=== PATIENT | female | born 1955 ===

== ENCOUNTER → 2020-12-18 18:52 | Outpatient (ROUT) | payer MEDICARE, MEDICAID, SELFPAY ==
[2020-12-18 19:38] LABS: BUN Creatinine Ratio 24.4 (6-22); Blood Urea Nitrogen 19 mg/dL (7-17); Calcium 8.9 mg/dL (8.4-10.2); Carbon Dioxide 33 mmol/L (22-32); Chloride 101 mmol/L (98-107); Estimated Glomerular Filt Rate > 60.0 mL/min (>60); Glucose 217 mg/dL (80-110); HEMOLYSIS < 15 (0-50); Potassium 3.8 mmol/L (3.4-5.1); Sodium 139 mmol/L (137-145)
[2020-12-18 19:56] LABS: Free T3, Triiodothyronine Free 3.55 pg/mL (2.77-5.27); Free T4, Direct Thyroxine 0.85 ng/dL (0.78-2.19); T4 Total Thyroxine 5.97 ug/dL (5.5-11.0); T7 (Free Thyroxine Index) 1.98 (1.65-3.89); Triiodothryronine T3 Uptake 33.1 % (23.5-40.5)
[2020-12-18 20:09] LABS: Thyroid Stimulating Hormone 2.04 uIU/mL (0.47-4.68)
[2020-12-20 07:02] LABS: Thyroid Peroxidase Antibodies <9 IU/mL (0-34)
== END ==
PROVIDERS: PCP Internal Medicine; Visit Provider Internal Medicine
DX: I10 Essential (primary) hypertension (principal); E03.9 Hypothyroidism, unspecified
CPT/HCPCS: 80048; 84436; 84439; 84443; 84479; 84481; 86376

== ENCOUNTER → 2022-05-05 10:21 | Outpatient (CLI) | payer MEDICARE, MEDICAID, SELFPAY ==
--- NOTE | 2022-05-05 10:23 | DI.RAD.S_ITS ---
PROCEDURE: XR KNEE LT 4V INDICATIONS: left knee pain, trauma TECHNIQUE: 4 views of the knee were acquired. COMPARISON: None. FINDINGS: Bones: No fractures or dislocations. No suspicious bony lesions. Moderate medial compartment narrowing and probable mild patellofemoral compartment narrowing. Tricompartmental spurring present. Soft tissues: No joint effusion. Vascular calcifications are present. IMPRESSION: 1. No acute osseous abnormality. 2. Moderate degenerative changes of the knee. 3. If symptoms persist, follow-up radiographs and/or CT may be helpful for further evaluation. Dictated by: Maximiliano Bergman M.D. on 05/05/2022 at 15:45 Approved by: Maximiliano Bergman M.D. on 05/05/2022 at 15:49
== END ==
PROVIDERS: PCP Internal Medicine; Referring Provider Internal Medicine; Visit Provider Internal Medicine
DX: S80.02XA Contusion of left knee, initial encounter (principal)
CPT/HCPCS: 73564

== ENCOUNTER → 2022-05-21 10:59 | Outpatient (CLI) | payer MEDICARE, MEDICAID, SELFPAY ==
[2022-05-21 12:19] LABS: Hematocrit 42.7 % (36-46); Hemoglobin 13.6 g/dL (12.0-16.0); Mean Corpuscular HGB Conc 31.9 % (30-36); Mean Corpuscular Volume 87.8 fL (80-100); Platelet Count 172 X10^3/uL (150-400); Red Blood Cell Count 4.86 X10^6/uL (4.0-5.2); Red Cell Distribution Width 14.8 % (11.6-14.8); White Blood Cell Count 8.1 X10^3/uL (4.5-11.0)
[2022-05-21 12:26] LABS: Hemoglobin A1C% w Est Avg Glu 5.6 % (4.0-6.0)
[2022-05-21 12:49] LABS: Alanine Aminotransferase 14 IU/L (<35); Albumin 3.8 g/dL (3.5-5.0); Albumin Globulin Ratio 1.3 (1.0-2.8); Alkaline Phosphatase 87 U/L (38-126); Aspartate Aminotransferase 23 IU/L (14-36); BUN Creatinine Ratio 18.2 (6-22); Bilirubin Total 0.8 mg/dL (0.2-1.3); Blood Urea Nitrogen 20 mg/dL (7-17); Calcium 8.8 mg/dL (8.4-10.2); Carbon Dioxide 36 mmol/L (22-32); Chloride 96 mmol/L (98-107); Cholesterol 116 mg/dL (140-199); Estimated Glomerular Filt Rate 56 mL/min (>60); Globulin 2.9 g/dL (1.7-4.1); HDL Cholesterol 44 mg/dL (40-60); HEMOLYSIS < 15 (0-50); LDL Cholesterol Calculated 51 mg/dL (<100); Sodium 141 mmol/L (137-145); Total Protein 6.7 g/dL (6.3-8.2); Triglycerides 103 mg/dL (35-150)
[2022-05-21 13:13] LABS: TSH w/ Reflex to FT4 2.86 uIU/mL (0.47-4.68)
[2022-05-21 13:25] LABS: Glucose 39 mg/dL (80-110)
[2022-05-21 17:06] LABS: Creatinine Urine Random 191.3 mg/dL
[2022-05-21 17:07] LABS: Microalbumi Creatinin Ratio Ur 9.4 ug/mg CR (<30); Microalbumin Urine Random 1.8 mg/dL (0-1.6)
== END ==
PROVIDERS: PCP Internal Medicine; Referring Provider Internal Medicine; Visit Provider Internal Medicine
DX: E11.42 Type 2 diabetes mellitus with diabetic polyneuropathy (principal); E78.2 Mixed hyperlipidemia; I10 Essential (primary) hypertension
CPT/HCPCS: 36415; 80053; 80061; 82043; 82570; 83036; 84443; 85027

== ENCOUNTER → 2022-09-15 12:03 | Outpatient (CLI) | payer MEDICARE, MEDICAID, SELFPAY ==
[2022-09-15 16:38] LABS: BUN Creatinine Ratio 23.3 (6-22); Blood Urea Nitrogen 24 mg/dL (7-17); Calcium 9.2 mg/dL (8.4-10.2); Carbon Dioxide 38 mmol/L (22-32); Chloride 96 mmol/L (98-107); Estimated Glomerular Filt Rate > 60 mL/min (>60); Glucose 64 mg/dL (80-110); HEMOLYSIS < 15 (0-50); Potassium 3.9 mmol/L (3.4-5.1); Sodium 141 mmol/L (137-145)
[2022-09-16 12:57] LABS: Hemoglobin A1C% w Est Avg Glu 5.9 % (4.0-6.0)
== END ==
PROVIDERS: PCP Internal Medicine; Referring Provider Internal Medicine; Visit Provider Internal Medicine
DX: E11.42 Type 2 diabetes mellitus with diabetic polyneuropathy (principal); I10 Essential (primary) hypertension
CPT/HCPCS: 36415; 80048; 83036

== ENCOUNTER → 2022-12-22 09:10 | Outpatient (CLI) | payer MEDICARE, MEDICAID, SELFPAY ==
[2022-12-22 11:05] LABS: Hematocrit 42.5 % (36-46); Hemoglobin 13.6 g/dL (12.0-16.0); Mean Corpuscular Hemoglobin 28.3 PG (26-34); Mean Corpuscular Volume 88.6 fL (80-100); Platelet Count 133 X10^3/uL (150-400); Red Cell Distribution Width 14.2 % (11.6-14.8); White Blood Cell Count 6.5 X10^3/uL (4.5-11.0)
[2022-12-22 11:34] LABS: Hemoglobin A1C% w Est Avg Glu 5.7 % (4.0-6.0)
[2022-12-22 11:41] LABS: Alanine Aminotransferase 14 IU/L (<35); Albumin 3.6 g/dL (3.5-5.0); Albumin Globulin Ratio 1.2 (1.0-2.8); Alkaline Phosphatase 91 U/L (38-126); Aspartate Aminotransferase 21 IU/L (14-36); BUN Creatinine Ratio 14.9 (6-22); Bilirubin Total 0.5 mg/dL (0.2-1.3); Blood Urea Nitrogen 13 mg/dL (7-17); Calcium 8.5 mg/dL (8.4-10.2); Carbon Dioxide 39 mmol/L (22-32); Chloride 95 mmol/L (98-107); Cholesterol 121 mg/dL (140-199); Estimated Glomerular Filt Rate > 60 mL/min (>60); HDL Cholesterol 43 mg/dL (40-60); HEMOLYSIS < 15 (0-50); LDL Cholesterol Calculated 59 mg/dL (<100); Potassium 3.7 mmol/L (3.4-5.1); Sodium 141 mmol/L (137-145); Total Protein 6.6 g/dL (6.3-8.2); Triglycerides 95 mg/dL (35-150)
[2022-12-22 11:42] LABS: NT-proBNP (BNP-Adult 18+) 175 pg/mL (<125)
[2022-12-22 12:00] LABS: Glucose 38 mg/dL (80-110)
== END ==
PROVIDERS: PCP Internal Medicine; Referring Provider Internal Medicine; Visit Provider Internal Medicine
DX: I25.10 Atherosclerotic heart disease of native coronary artery without angina pectoris (principal); I50.33 Acute on chronic diastolic (congestive) heart failure; E11.42 Type 2 diabetes mellitus with diabetic polyneuropathy; E78.2 Mixed hyperlipidemia; I10 Essential (primary) hypertension; J96.11 Chronic respiratory failure with hypoxia
CPT/HCPCS: 36415; 80053; 80061; 83036; 83880; 85027

== ENCOUNTER → 2023-03-25 09:45 | Outpatient (CLI) | payer MEDICARE, MEDICAID, SELFPAY ==
--- NOTE | 2023-03-25 | DI.RAD.S_ITS ---
PROCEDURE: FL BARIUM SWALLOW W SPEECH INDICATIONS: Gastrostomy status/DYSPHAGIA COMPARISON: None. TECHNIQUE: Examination was conducted in conjunction with speech pathology per standard protocol. In the lateral projection, filming was performed of the patient swallowing. AP projection filming may also be performed with patient swallowing. COMPARISON: FINDINGS: Function: The oral preparatory phase and oral propulsive phase are diminished. The pharyngeal phase demonstrates persistent vallecular pooling. There is navi aspiration. There is a piriform sinus pooling. Morphology: No cricopharyngeal bar is identified. No cervical esophageal webs. No Zenker's diverticulum identified. IMPRESSION: Navi aspiration. Please see separately dictated speech pathologist's report. Dictated by: Gianni Bobo M.D. on 03/25/2023 at 12:48 Approved by: Gianni Bobo M.D. on 03/25/2023 at 12:53
--- NOTE | 2023-03-25 17:30 | ST.SWALLOW ---
Visit Care Team Role Provider Type Horacio Bridges MD Attending Provider Physician Primary Care Provider Referring Provider Specialty: Internal Medicine Address: [address] [place] [address], [id number] Email: [email or web address] Modified Barium Swallow Study SINGING MESSENGER Clinical Instructor Line Start: 03/25/23 12:15 Freq: Status: Active Protocol: Document 03/25/23 12:15 BE (Rec: 03/25/23 12:31 BE [id number]) Clinical Instructor Signature Clinical Instructor Clinical Instructor Yes: Ansley CARPIO Modified Barium Swallow Study Start: 03/25/23 12:15 Freq: Status: Active Protocol: Document 03/25/23 12:15 BE (Rec: 03/25/23 12:31 BE [id number]) Modified Barium Swallow Study Total Time Visit Start Time 10:45 Visit Stop Time 11:30 Total Visit Minutes 45 Setting Setting Outpatient Care Patient Information Identification Type Name,Other Patient History Pt is a 67 YO woman who was referred for MBSS to assess swallow safety, and implications for G tube removal. Pt has PMH of chronic respiratory failure with hypoxia, COPD, GERD without esophagitis, paralyzed right vocal fold, seizure disorder, pneumonia, and type II diabetes. G tube placed 01/27/23 , and was advised to take medications through tube. Pt reported today that she has continued to take medication orally, and is regularly eating liquidized, pureed, and minced foods (IDDSI 3,4,5). She stated that she is eating less than she typically does, but has lost around 40 lbs since being on tube. Pt is current on 4L of oxygen due to chronic respiratory failure. Subjective Observations Pt was brought on time to [facility] in wheelchair, and agreed to participate in study. Pt had 24oz cup with straw in purse, against medical advice. She stated that she will be getting tube out no matter what, and is expecting to have a discussion with Dr. Bridges about it on her next scheduled visit (March 31, 2023) . Patient Positioning Position View Lateral Imaging Lateral View Textures Administered Trials Presented Thin Liquid via Spoon (IDDSI 0 ),Thin Liquid via Cup (IDDSI 0 ),Mildly Thick Liquid via Spoon (IDDSI 2),Mildly Thick Liquid via Cup (IDDSI 2), Regular (IDDSI 7) Barium Tablet No The IDDSI Framework Protocol: IDDSI.1 Oral Impairment Source: The Modified Barium Swallow Impairment Profile (MBSImP??) Lip Closure No labial escape Tongue Control During Bolus Hold Posterior escape of greater than half of bolus Bolus Preparation/Mastication Disorganized chewing/mashing with solid pieces of bolus unchewed Bolus Transport/Lingual Motion Repetitive/disorganized tongue motion Oral Residue Residue collection on oral structures Location Floor of mouth,Tongue,Lateral sulci Initiation of Pharyngeal Swallow Bolus head at pyriforms Additional Oral Impairment Observations OME: DDK task indicated that pt has difficulty with coordinating sequential or rapid movements of tongue. Speech mildly dysarthric ( strain, breathy). Pt demonstrated reduced ROM and coordination between articultaors (mainly tongue/ lips) across OME tasks. Pt is edentulous, and currently wears upper dentures due to lower dentures being ill fit per pt report. ORAL PHASE: Pt presented with reduced tongue coordination and strength, resulting in minimal control of bolus across trials and repetitive and disorganized a/ p transport. Lip closure was adequate. Mastication was disorganized with solid pieces of bolus unchewed. Pharyngeal Impairment Source: The Modified Barium Swallow Impairment Profile (MBSImP??) Soft Palate Elevation No bolus between soft palate & pharyngeal wall Laryngeal Elevation Min.sup.move. thyroid cart. w/ min.approx.arytenoids to epiglot.petiole Anterior Hyoid Excursion Partial anterior movement Epiglottic Movement No inversion Laryngeal Vestibular Closure None; wide column air/contrast in laryngeal vestibule Pharyngeal Stripping Wave Absent Pharyngoesophageal Segment Opening Minimal distension/minimal duration; marked obstruction of flow Tongue Base Retraction Wide column of contrast/air betwn tongue base & post. pharyngeal wall Pharyngeal Residue Majority of contrast within/on pharyngeal structures Location Diffuse (>3 areas) Additional Pharyngeal Impairment Pt presents with severe Observations pharyngeal dysphagia, characterized by reduced strength, ROM, and coordination between and within all pharyngeal structures. Severely weakened base of tongue strength resulted in reduced hyolaryngeal elevation and epiglottic inversion. Pt required 13+ cued swallows, including 7 liquid washes to get majority of regular texture (IDDSI 7) bolus through UES. Collection of residue remained at end of study. 1 navi aspiration, penetration observed from vallecular residue and incomplete swallows. Cough following aspiration was reflexive but ineffective. Subsequent trials beyond first conducted with pt's head turned to left and with chin tuck. No aspiration noted in that position in single swallows. Laryngeal penetration noted across sequential swallow trials. A/P View The IDDSI Framework Protocol: IDDSI.1 Clinical Impressions Dysphagia Type WNL,Pharyngeal Findings Pt presents with severe oropharyngeal phase dysphagia, characterized by pervasive weakness, incoordination, and reduced ROM and control of all swallow structures across trials. With swallow strategy of head turn to left and chin tuck combined, pt safely swallowed thin and nectar thick liquids (single swallow) . Pt had significant difficulty swallowing single regular texture (IDDSI 7) bolus, with 13+ cued swallows necessary to clear majority of 1/2 inch piece of cookie through UES. Liquid wash used 8+ trials to help clear valeculla, residue remained at end of study. UES appeared restricted, with retroflow through pharynx from esophagus . Unable to study esophageal function. Pt follow-through with medical advice re: dysphagia diet and G tube likely to be poor, due to pt report of current eating habits against medical advice. High risk for aspiration. Recommend head turn to left with chin Rehabilitation Potential Poor Patient Appropriate for Therapy No: Pt has admitted to eating, drinking, taking oral medication against AMA Recommendations Diet Liquids Order Thin (IDDSI 0) Diet Order NPO Medication Recommendation Not Recommended by Mouth Comments With strategies outlined below , possible PO intake Additional Dietary Needs Reminders to Use Strategies Aspiration Precautions Recommended Precautions Upright at 90 Degrees,Chin Tuck,Double Swallow,Left Head Turn,Liquids from Cup Treatment Plan Therapy Strategy Recommendations Sitting Upright (90 deg),Turn Head Left,Tilt Head Left,Chin Tuck,Double Swallow,No Straw, Liquids from Cup Additional Recommendations/Comments With consistent use of head turn to left + chin tuck strategy, patient is more likely to swallow safely with minimal risk of aspiration. Based on pt's report of current consumption (food, liquid, medication), pt remains at high risk for aspiration. Given aspiration risk, adequate nutrition and hydration intake unlikely.
== END ==
PROVIDERS: PCP Internal Medicine; Referring Provider Internal Medicine; Visit Provider Internal Medicine
DX: J38.01 Paralysis of vocal cords and larynx, unilateral (principal); Z93.1 Gastrostomy status; R13.10 Dysphagia, unspecified
CPT/HCPCS: 74230; 92611

== ENCOUNTER → 2023-09-30 14:59 | Outpatient (CLI) | payer MEDICARE, MEDICAID, SELFPAY ==
[2023-09-30 15:42] LABS: Hemoglobin A1C% w Est Avg Glu 6.5 % (4.0-6.0)
[2023-09-30 16:03] LABS: Aspartate Aminotransferase 21 IU/L (14-36); BUN Creatinine Ratio 26.6 (6-22); Blood Urea Nitrogen 17 mg/dL (7-17); Calcium 9.6 mg/dL (8.4-10.2); Chloride 92 mmol/L (98-107); Cholesterol 132 mg/dL (140-199); Estimated Glomerular Filt Rate > 60 mL/min (>60); Glucose 119 mg/dL (80-110); HDL Cholesterol 50 mg/dL (40-60); HEMOLYSIS < 15 (0-50); LDL Cholesterol Calculated 53 mg/dL (<100); Potassium 3.1 mmol/L (3.4-5.1); Sodium 140 mmol/L (137-145); Triglycerides 145 mg/dL (35-150)
[2023-09-30 16:12] LABS: Carbon Dioxide 39 mmol/L (22-32)
[2023-09-30 18:08] LABS: Microalbumi Creatinin Ratio Ur 15.1 ug/mg CR (<30); Microalbumin Urine Random 1.2 mg/dL (0-1.6)
== END ==
PROVIDERS: PCP Internal Medicine; Referring Provider Internal Medicine; Visit Provider Internal Medicine
DX: E11.42 Type 2 diabetes mellitus with diabetic polyneuropathy (principal); I10 Essential (primary) hypertension; E78.2 Mixed hyperlipidemia
CPT/HCPCS: 36415; 80048; 80061; 82043; 82570; 83036; 84450

== ENCOUNTER → 2023-11-24 16:19 | Outpatient (CLI) | payer MEDICARE, MEDICAID, SELFPAY ==
[2023-11-24 18:12] LABS: Vitamin B12 454 pg/mL (239-931)
[2023-11-25 15:52] LABS: BUN Creatinine Ratio 36.4 (6-22); Blood Urea Nitrogen 20 mg/dL (7-17); Calcium 9.2 mg/dL (8.4-10.2); Carbon Dioxide 33 mmol/L (22-32); Chloride 98 mmol/L (98-107); Estimated Glomerular Filt Rate > 60 mL/min (>60); Glucose 121 mg/dL (80-110); HEMOLYSIS 25 (0-50); Magnesium 1.7 mg/dL (1.6-2.3); Potassium 3.9 mmol/L (3.4-5.1); Sodium 138 mmol/L (137-145)
== END ==
PROVIDERS: Physician Assistant; PCP Internal Medicine; Referring Provider Internal Medicine; Visit Provider Internal Medicine
DX: E53.8 Deficiency of other specified B group vitamins (principal); R79.0 Abnormal level of blood mineral
CPT/HCPCS: 36415; 80048; 82607; 83735

== ENCOUNTER → 2023-12-30 09:41 | Outpatient (CLI) | payer MEDICARE, MEDICAID, SELFPAY ==
[2023-12-30 10:31] LABS: Hemoglobin A1C% w Est Avg Glu 6.1 % (4.0-6.0)
[2023-12-30 10:46] LABS: BUN Creatinine Ratio 32.6 (6-22); Blood Urea Nitrogen 15 mg/dL (7-17); Calcium 8.6 mg/dL (8.4-10.2); Carbon Dioxide 35 mmol/L (22-32); Chloride 104 mmol/L (98-107); Estimated Glomerular Filt Rate > 60 mL/min (>60); Glucose 135 mg/dL (80-110); HEMOLYSIS < 15 (0-50); Potassium 4.1 mmol/L (3.4-5.1); Sodium 139 mmol/L (137-145)
== END ==
LOC: LAB 09:42
PROVIDERS: PCP Internal Medicine; Referring Provider Internal Medicine; Visit Provider Internal Medicine
DX: E11.42 Type 2 diabetes mellitus with diabetic polyneuropathy (principal)
CPT/HCPCS: 36415; 80048; 83036

== ENCOUNTER → 2024-02-04 11:02 | Outpatient (CLI) | payer MEDICARE, MEDICAID, SELFPAY ==
--- NOTE | 2024-02-04 11:06 | DI.RAD.S_ITS ---
PROCEDURE: XR CHEST 2V INDICATIONS: eval/tx post hospital d/c TECHNIQUE: 2 views of the chest were acquired. COMPARISON: None. FINDINGS: Surgical changes and devices: None. Lungs and pleura: Bibasilar opacities. No pneumothorax. Small to moderate right pleural effusion. Mediastinum: Mediastinal contours are normal. Heart size is normal. Bones and chest wall: No suspicious bony abnormalities. Soft tissues appear unremarkable. IMPRESSION: Small to moderate right pleural effusion. Suspect bibasilar atelectasis. Consider CT chest with IV contrast for further evaluation. Dictated by: Gianni Bobo M.D. on 02/04/2024 at 16:31 Approved by: Gianni Bobo M.D. on 02/04/2024 at 16:32
== END ==
PROVIDERS: PCP Internal Medicine; Referring Provider Internal Medicine; Visit Provider Internal Medicine
DX: J90 Pleural effusion, not elsewhere classified (principal); R91.8 Other nonspecific abnormal finding of lung field; R91.1 Solitary pulmonary nodule; Z98.890 Other specified postprocedural states
CPT/HCPCS: 71046